=== PATIENT | female | born 1975 | race African-American/Black ===

== ENCOUNTER 2016-08-03 19:43 | Emergency (ER) | payer SELFPAY ==
[~2016-08-03] VITALS: Ht 162.6 cm; Wt 68.0 kg
[2016-08-03 20:00] VITALS: BP 121/70
== END 2016-08-03 20:34 | disposition home or self-care (01) ==
LOC: EMS 19:45
DX: S09.90XA Unspecified injury of head, initial encounter (principal); F17.210 Nicotine dependence, cigarettes, uncomplicated; W22.8XXA Striking against or struck by other objects, initial encounter; Y93.89 Activity, other specified; Y92.89 Other specified places as the place of occurrence of the external cause; Y99.8 Other external cause status
CPT/HCPCS: 99283

== ENCOUNTER 2016-08-26 06:26 | Day surgery (SDC) | payer MEDICAID ==
[~2016-08-26] VITALS: Ht 165.1 cm; Wt 83.2 kg
[~2016-08-26 06:26] MED LIST: AMOX250T PO; CLAR500T PO; DSS100 PO; ESOM20CA31 PO; ESTR0.5T PO; POLY238P2 PO; PROPOFOL 1% 20 ML VIAL IVP ONE
[2016-08-26] MEDS ORDERED: SODIUM CHLORIDE 0.9% 1,000 ML IV ONE ×2 (06:30→10:57)
== END 2016-08-26 09:45 | disposition home or self-care (01) ==
LOC: SURGERY 06:26
PROVIDERS: ATTEND Specialist
DX: K29.70 Gastritis, unspecified, without bleeding (principal); K21.9 Gastro-esophageal reflux disease without esophagitis; D50.9 Iron deficiency anemia, unspecified; F17.200 Nicotine dependence, unspecified, uncomplicated; Z90.710 Acquired absence of both cervix and uterus; Z87.42 Personal history of other diseases of the female genital tract; Z93.3 Colostomy status
CPT/HCPCS: 43239; 88305; 88312; J2704; J7030